=== PATIENT | male | born 1990 | race Caucasian/White ===

== ENCOUNTER 2016-06-18 15:15 | Emergency (ER) | payer SELFPAY ==
[~2016-06-18] VITALS: Ht 182.9 cm; Wt 94.0 kg
[2016-06-18 15:18] VITALS: Ht 182.9 cm; Wt 94.0 kg
[2016-06-18] MEDS ORDERED: ONDANSETRON 4 MG INJ IV STA (17:25)
[2016-06-18] MEDS ORDERED: morphine 4 MG/ML VIAL IV STA (17:25)
--- NOTE | 2016-06-18 17:39 | ERD ---
ER Documentation Chief Complaint Date/Time DATE: 06/18/16 TIME: 17:37 Chief Complaint ap with bloody stools 5 days, hx ulcerative colitis HPI This a 25-year-old male who presents to the emergency department today complaining of abdominal pain and bloody stools for the past 5 days. Patient states that 2 months ago he was diagnosed with ulcerative colitis and was possibly could have surgery however his insurance changed with the . States she has had 1 bout of vomiting. States that the diarrhea is intermittent. Denies any fevers or chills. ROS All systems reviewed and are negative except as per history of present illness. Medications Home Meds Active Scripts Prednisone* (Prednisone*) 20 Mg Tab, 60 MG PO DAILY for 5 Days, TAB Prov:ANTON SOTO PA-C 06/18/16 Levofloxacin* (Levaquin*) 500 Mg Tablet, 500 MG PO DAILY for 7 Days, TAB Prov:ANTON SOTO PA-C 06/18/16 Hydrocodone/Acetaminophen ([place] 10-325 Tablet) 1 Each Tablet, 1 TAB PO Q6H Y for PAIN, #20 TAB Prov:ANTON SOTO PA-C 06/18/16 Allergies Allergies: Coded Allergies: No Known Allergy (Unverified , 06/18/16) PMhx/Soc Medical and Surgical Hx: pt denies Medical Hx, pt denies Surgical Hx Hx Alcohol Use: No Hx Substance Use: No Hx Tobacco Use: No Smoking Status: Never smoker Physical Exam Vitals Vital Signs Date Time Temp Pulse Resp B/P Pulse Ox O2 Delivery O2 Flow Rate FiO2 06/18/16 15:18 98.1 87 20 154/87 99 Physical Exam Const: No acute distress Head: Atraumatic Eyes: Normal Conjunctiva ENT: Normal External Ears, Nose and Mouth. Neck: Full range of motion..~ No meningismus. Resp: Clear to auscultation bilaterally Cardio: Regular rate and rhythm, no murmurs Abd: Soft, diffuse abdominal tenderness non distended. Normal bowel sounds Skin: No petechiae or rashes Back: No midline or flank tenderness Ext: No cyanosis, or edema Neur: Awake and alert Psych: Normal Mood and Affect Result Diagram: 06/18/16 1725 06/18/16 1725 Results 24 hrs Laboratory Tests Test 06/18/16 17:10 06/18/16 17:20 06/18/16 17:25 Stool Occult Blood NEGATIVE Urine Bilirubin NEGATIVE Urine Clarity CLEAR Urine Color LT. YELLOW Urine Glucose NEGATIVE% Urine Hemoglobin NEGATIVE Urine Ketones NEGATIVE Urine Leukocyte Esterase NEGATIVE Urine Nitrite NEGATIVE Urine Specific Phenix 1.020 Urine Total Protein NEGATIVE Urine Urobilinogen 0.2 E.U./dL Urine pH 6.0 Alanine Aminotransferase (ALT/SGPT) 65IU/L Albumin 4.7g/dl Albumin/Globulin Ratio 1.14 Alkaline Phosphatase 130IU/L Anion Gap 19 Aspartate Amino Transf (AST/SGOT) 33IU/L Basophils # 0.110^3/ul Basophils % 1.0% Blood Urea Nitrogen 11mg/dl Calcium Level 9.3mg/dl Carbon Dioxide Level 27mmol/L Chloride Level 102mmol/L Creatinine 0.75mg/dl Direct Bilirubin 0.00mg/dl Eosinophils # 0.210^3/ul Eosinophils % 1.9% Globulin 4.10g/dl Glucose Level 90mg/dl Hematocrit 42.6% Hemoglobin 14.6g/dl Indirect Bilirubin 0.5mg/dl Lipase 138U/L Lymphocytes # 2.010^3/ul Lymphocytes % 22.8% Mean Corpuscular Hemoglobin 30.9pg Mean Corpuscular Hemoglobin Concent 34.4g/dl Mean Corpuscular Volume 90.0fl Mean Platelet Volume 8.6fl Monocytes # 0.910^3/ul Monocytes % 10.7% Neutrophils # 5.510^3/ul Neutrophils % 63.6% Nucleated Red Blood Cells # 0.010^3/ul Nucleated Red Blood Cells % 0.0/100WBC Platelet Count 00369^3/UL Potassium Level 4.0mmol/L Red Blood Count 4.7310^6/ul Red Cell Distribution Width 12.8% Sodium Level 144mmol/L Total Bilirubin 0.5mg/dl Total Protein 8.8g/dl White Blood Count 8.710^3/ul Current Medications Medications (Trade) Dose Ordered Sig/Amira Route PRN Reason Start Time Stop Time Status Last Admin Dose Admin Morphine Sulfate (morphine) 4 mg ONCE STAT IV 06/18/16 17:25 06/18/16 17:28 DC 06/18/16 18:05 Ondansetron HCl (Zofran Inj) 4 mg ONCE STAT IV 06/18/16 17:25 06/18/16 17:28 DC 06/18/16 18:03 Methylprednisolone Sodium Succinate 125 mg 125 mg ONCE ONCE IV 06/18/16 18:00 06/18/16 18:01 DC 06/18/16 18:06 Sodium Chloride (NS) 1,000 ml @ 1,000 mls/hr Q1H ONCE IV 06/18/16 18:00 06/18/16 18:59 DC 06/18/16 18:03 Patient: BARTOLO CUNNINGHAM : 1990 Age: 25 Sex: M MR #: [id number] DOS: 06/18/16 1725 Ordering MD: ANTON SOTO PA-C Location: [facility] Room/Bed: PROCEDURE: CT Abdomen and Pelvis without contrast. CLINICAL INDICATION: Abdominal and pelvic pain. TECHNIQUE: CT scan of the abdomen and pelvis without contrast was performed. Coronal and sagittal reformatted images were obtained from the axial source images. Images were reviewed on a high-resolution PACS workstation. Total exam DLP is 664.86 mGy-cm. CTDIvol is 11.38 mGy. One or more of the following dose reduction techniques were used: Automated exposure control, adjustment of the mA and/or kV according to patient size, use of iterative reconstruction technique. COMPARISON: None. FINDINGS: The lung bases are normal. There is no pleural effusion. The liver is normal in size and attenuation. There is no focal hepatic lesion. The gallbladder and bile ducts are normal. The spleen is normal in size. There is no focal splenic lesion. Both adrenals are normal with no enlargement or mass. The pancreas is unremarkable with no mass or evidence of pancreatitis. There is no renal mass or hydronephrosis. There is no renal calculus or ureteral calculus. The abdominal aorta is not dilated. There is no retroperitoneal lymphadenopathy or mass. There is no pelvic lymphadenopathy or mass. The bladder and distal ureters are normal. The periappendiceal region is unremarkable with no evidence of appendicitis. The appendix is well seen and appears normal. The bowel and mesentery are normal. There is no free fluid or free gas. The osseous structures are unremarkable with no fracture or lytic lesion. IMPRESSION: 1. No urinary tract calculus or hydronephrosis. 2. Normal appendix. 3. Normal noncontrast CT scan of the abdomen and pelvis. RPTAT: QQ .Gibran Ruffin MD, Date Time Electronically viewed and signed by .Gibran Ruffin MD, on 06/18/2016 19:54 .R/ CC: ANTON SOTO PA-C Procedures/MDM This is a 25-year-old male who presents to the emergency department today complaining of bloody stools and 5 days of abdominal pain. Patient has a history of ulcerative colitis. This is the patient's first visit to the emergency room. Patient had diffuse abdominal pain on physical exam and therefore did obtain a complete laboratory work as well as imaging. Laboratory work shows an elevated white blood cell count. He is not anemic. Platelets are within normal limits. Electrolytes are within normal limits. Lipase is within normal limits. Glucose is within normal limits. UA is negative. CT abdomen and pelvis noncontrast shows no urinary tract count was a hydronephrosis. Normal appendix. The bowel and mesentery are normal. There is no free fluid or free gas. There is no pelvic lymphadenopathy or mass. Gallbladder and bile ducts are normal. Occult is negative Abdominal pain and complaints of bloody diarrhea symptoms consistent with ulcerative colitis acute flareup Patient was given IV fluids, Zofran, morphine, Solu-Medrol here in the emergency department. Pain Improved. Patient will be given a prescription for Levaquin, prednisone and [place]. There is no evidence to suggest any acute surgical abdomen at this time. He do not feel the patient requires admission. At this time the patient is stable for discharge and outpatient management. Patient should follow up with their PCP in the next 1-2 days. They may return to the emergency department sooner for any persistent or worsening of symptoms. Patient understood and agreed with the plan. Discussed the case with Dr. Heart and he is in agreement with the plan Departure Diagnosis: Primary Impression: Abdominal pain Abdominal location: generalized Qualified Code: R10.84 - Generalized abdominal pain Condition: Fair ANTON SOTO PA-C Jun 18, 2016 17:39
[2016-06-18] MEDS ORDERED: METHYLPREDNISOLONE 125 MG INJ IV ONE (18:00)
[2016-06-18] MEDS ORDERED: SOD CHLORIDE 0.9% 1,000 ML IV ONE (18:00)
[2016-06-18 18:17] LABS: BASOPHIL # 0.1 10^3/ul (0.0-0.1); EOSINOPHILS # 0.2 10^3/ul (0.0-0.5); EOSINOPHILS % 1.9 % (0.0-7.0); HEMATOCRIT 42.6 % (42.0-52.0); HEMOGLOBIN 14.6 g/dl (14.0-18.0); LYMPHOCYTES % 22.8 % (15.0-51.0); MEAN CORPUSCULAR HEMOGLOBIN 30.9 pg (29.0-33.0); MEAN CORPUSCULAR HGB CONC 34.4 g/dl (32.0-37.0); MEAN PLATELET VOLUME 8.6 fl (7.4-10.4); MONOCYTE # 0.9 10^3/ul (0.3-0.9); MONOCYTES % 10.7 % (0.0-11.0); NEUTROPHIL # 5.5 10^3/ul (1.6-7.5); NEUTROPHILS % 63.6 % (39.0-77.0); PLATELET COUNT 219 10^3/UL (140-440); RED BLOOD COUNT 4.73 10^6/ul (4.70-6.10); RED CELL DISTRIBUTION WIDTH 12.8 % (11.5-14.5); UNCORRECTED WBC 8.7 10^3/ul (4.8-10.8); WHITE BLOOD COUNT 8.7 10^3/ul (4.8-10.8)
[2016-06-18 18:18] LABS: ADD UMIC NO; URINE BILIRUBIN (Dip) NEGATIVE (NEGATIVE); URINE BLOOD (Dip) NEGATIVE (NEGATIVE); URINE COLOR LT. YELLOW (YELLOW); URINE GLUCOSE (Dip) NEGATIVE (NEGATIVE); URINE KETONES (Dip) NEGATIVE (NEGATIVE); URINE LEUKOCYTE ESTERASE (Dip) NEGATIVE (NEGATIVE); URINE NITRITE (Dip) NEGATIVE (NEGATIVE); URINE TOTAL PROTEIN (Dip) NEGATIVE (NEGATIVE); URINE UROBILINOGEN (Dip) 0.2 E.U./dL (0.1-1.0)
[2016-06-18 18:23] LABS: CONDITION 1
[2016-06-18 18:43] LABS: ALBUMIN 4.7 g/dl (3.3-4.9)
[2016-06-18 18:46] LABS: ALBUMIN/GLOBULIN RATIO 1.14; BILIRUBIN,INDIRECT 0.5 mg/dl (0-1.1); BILIRUBIN,TOTAL 0.5 mg/dl (0.2-1.3); CALCIUM 9.3 mg/dl (8.4-10.2); CREATININE 0.75 mg/dl (0.61-1.24); TOTAL PROTEIN 8.8 g/dl (6.1-8.1)
--- NOTE | 2016-06-18 19:54 | RADRPT ---
PROCEDURE: CT Abdomen and Pelvis without contrast. CLINICAL INDICATION: Abdominal and pelvic pain. TECHNIQUE: CT scan of the abdomen and pelvis without contrast was performed. Coronal and sagittal reformatted images were obtained from the axial source images. Images were reviewed on a high-resolu [employer] PACS workstation. Total exam DLP is 664.86 mGy-cm. CTDIvol is 11.38 mGy. One or more of the f ollowing dose reduction techniques were used: Automated exposure control, adjustment of the mA and/o r kV according to patient size, use of iterative reconstruction technique. COMPARISON: None. FINDINGS: The lung bases are normal. There is no pleural effusion. The liver is normal in size and attenuation. There is no focal hepatic lesion. The gallbladder and bile ducts are normal. The spleen is normal in size. There is no focal splenic lesion. Both adrenals are normal with no enlargement or mass. The pancreas is unremarkable with no mass or evidence of pancreatitis. There is no renal mass or hydronephrosis. There is no renal calculus or ureteral calculus. The abdominal aorta is not dilated. There is no retroperitoneal lymphadenopathy or mass. There is no pelvic lymphadenopathy or mass. The bladder and distal ureters are normal. The periappendiceal region is unremarkable with no evidence of appendicitis. The appendix is well se en and appears normal. The bowel and mesentery are normal. There is no free fluid or free gas. The osseous structures are unremarkable with no fracture or lytic lesion. IMPRESSION: 1. No urinary tract calculus or hydronephrosis. 2. Normal appendix. 3. Normal noncontrast CT scan of the abdomen and pelvis. RPTAT: QQ .Gibran Ruffin MD, Date Time Electronically viewed and signed by .Gibran Ruffin MD, on 06/18/2016 19:54 .R/
[2016-06-18] MEDS ORDERED: HYDR-902 PO (20:54)
[2016-06-18] MEDS ORDERED: LEVO500T72 PO (20:55)
[2016-06-18] MEDS ORDERED: PRED20TA PO (20:55)
[2016-06-18 21:30] VITALS: BP 140/79; PULSE 78; RESP 18; TEMP 98.3
== END 2016-06-18 22:02 | disposition home or self-care (01) ==
LOC: FTE 15:15
DX: R10.84 Generalized abdominal pain (principal); R11.10 Vomiting, unspecified
CPT/HCPCS: 36415; 74176; 80053; 81003; 82270; 83690; 85025; 96374; 96375; 99285; J2270; J2405; J2930; J7030